=== PATIENT | female | born 2000 | race African-American/Black ===

== ENCOUNTER 2021-05-03 21:23 | Emergency (ER) | payer SELFPAY ==
[2021-05-03] MEDS ORDERED: Ondansetron ODT 4 MG TAB ONE (22:32)
== END 2021-05-03 22:39 | disposition home or self-care (01) ==
LOC: CSHERS 21:23
DX: J39.8 Other specified diseases of upper respiratory tract (principal); B97.89 Other viral agents as the cause of diseases classified elsewhere; B30.9 Viral conjunctivitis, unspecified
CPT/HCPCS: 99284; Q0162

== ENCOUNTER 2022-02-15 18:14 | Emergency (ER) | payer SELFPAY | END 2022-02-15 20:19 | disposition home or self-care (01) | LOC: CSHERS 18:14 | DX: J03.90 Acute tonsillitis, unspecified (principal) | CPT/HCPCS: 87081; 87430; 99283 ==